=== PATIENT | male | born 1990 | race Caucasian/White ===

== ENCOUNTER 2019-03-24 12:35 | Emergency (ER) | payer OTHER ==
[2019-03-24 14:15] VITALS: BP 142/82
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
== END 2019-03-24 15:33 | disposition home or self-care (01) ==
LOC: UCEAST 12:35
DX: S01.81XA Laceration without foreign body of other part of head, initial encounter (principal); S00.81XA Abrasion of other part of head, initial encounter; S00.83XA Contusion of other part of head, initial encounter; S40.021A Contusion of right upper arm, initial encounter; Y04.2XXA Assault by strike against or bumped into by another person, initial encounter; Y92.9 Unspecified place or not applicable
CPT/HCPCS: 99202; G0463